=== PATIENT | male | born 2000 | race Two or more races ===

== ENCOUNTER 2024-12-27 03:53 | Emergency (ER) | payer MEDICAID, SELFPAY ==
--- NOTE | ~2024-12-27 | XR_ITS ---
CLINICAL HISTORY: Back pain 3 views lumbar spine Comparison: None Findings: No fractures or spondylolisthesis. Normal facets shotty report Disc spaces are maintained. Pedicles and transverse processes intact. Lordotic curvature is preserved. Normal bone mineralization. Normal soft tissues. Sacroiliac joints unremarkable. Impression: 1. No compression fractures or spondylolisthesis. This document has been electronically signed by: Bharath Esqueda MD on 12/27/2024 05:14:44
[2024-12-27 03:56] VITALS: BP 136/69; PULSE 66; RESP 14; TEMP 36.7; O2SAT 97; BMI 22.1
--- NOTE | 2024-12-27 05:40 | ED.BACK ---
HPI - Back Pain/Injury General Chief Complaint: Back Pain/Injury Stated Complaint: lower back injury Time Seen by Provider: 12/27/24 04:18 Source: patient Mode of arrival: ambulatory Limitations: no limitations History of Present Illness ED Provider: Dr. Gino George HPI Narrative: 24-year-old male with no significant past medical history who presents emergency department for evaluation of back pain x3 weeks. The patient states that the pain started immediately after he caught a friend jumped on him. He states that he felt immediate popping sensation in his lower back and also had pain that radiated down to both testicles. He states that that is this to kill her pain is resolved but he continues to have lower back pain. Patient points to his right lumbar paraspinal muscles when asked to localize the pain. He states that the pain is a constant pain which is worse with movement. The pain does not radiate down his legs. He has had no loss of bowel or bladder control. At the time my evaluation he states the pain is 7/10. Related Data Previous Rx's ?Medication ?Instructions ?Recorded cyclobenzaprine 10 mg tablet 10 mg PO TID PRN muscle pain or 12/27/24 spasm #20 tabs Allergies Allergy/AdvReac Type Severity Reaction Status Date / Time No Known Allergies Allergy Verified 12/27/24 03:59 Review of Systems Review of Systems: Yes all other systems are reviewed and are negative [facility] Social History Social History Smoked in Last 30 Days: No Use of substances other than those prescribed or required for medical reasons: No Advance Directives: No Advance Directives Information Provided: No Do you have a plan to hurt others: No Plan Physical Exam Vital Signs: Vital Signs: Last Vital Signs Temp 98.0 F 12/27/24 05:47 Pulse 66 12/27/24 05:47 Resp 14 12/27/24 05:47 BP 136/69 12/27/24 05:47 Pulse Ox 97 12/27/24 05:47 O2 Del Method Room Air 12/27/24 05:47 BMI result Body Mass Index 22.1 Vital signs were normal. Exam: General: Awake, alert in no distress Head: Normocephalic, atraumatic EENT: PERRL, Lids normal, sclera normal, conjunctiva normal, nose normal , ears normal, throat without erythema or exudates Neck: Supple, no adenopathy Lung: breath sounds symmetric, no wheezing, rales or rhonchi Chest: symmetric movement, nontender Heart: regular rate and rhythm, normal S1, S2 no murmurs or rubs Abdomen: soft, non-tender, nondistended, normal bowel sounds Back: no vertebral tenderness, Patient has tenderness palpation over the paraspinal muscles in the lumbosacral area on the right with spasm of these muscles. His negative straight leg raises bilaterally. Extremities: no deformities, moves all extremities symmetrically Neuro: Awake, alert, oriented, normal speech, cranial nerves intact, moves all extremities symmetrically Psych: Pleasant, cooperative Medications Administered Discontinued Medications Generic Name Dose Route Start Last Admin Trade Name Freq PRN Reason Stop Dose Admin Acetaminophen 975 mg 12/27/24 05:39 12/27/24 05:56 Acetaminophen 325 Mg Tablet PO 12/27/24 05:40 975 mg ONCE ONE Administration Ibuprofen 400 mg 12/27/24 05:39 12/27/24 05:57 Ibuprofen 400 Mg Tablet PO 12/27/24 05:40 400 mg ONCE STA Administration Medical Decision Making Medical Decision Making [facility] Narrative: 24-year-old male with no significant past medical history who presents emergency department for evaluation of back pain x3 weeks. The patient states that the pain started immediately after he caught a friend jumped on him. He states that he felt immediate popping sensation in his lower back and also had pain that radiated down to both testicles. He states that that is this to kill her pain is resolved but he continues to have lower back pain. Patient points to his right lumbar paraspinal muscles when asked to localize the pain. He states that the pain is a constant pain which is worse with movement. The pain does not radiate down his legs. He has had no loss of bowel or bladder control. At the time my evaluation he states the pain is 7/10. Vital signs were normal. Physical examination revealed no point tenderness palpation was vertebrae. Had negative straight leg raises bilaterally. He did have tenderness palpation of the paraspinal muscles in the right lumbar area with spasm of these muscles. Differential diagnosis: Includes but is not limited to Lumbar strain, lumbar sprain, disc disease, join Course: the patient's three view lumbar spine x-rays revealed no acute abnormalities. Patient's presentation and findings are consistent with lumbar sprain /strain. At this time I do not think patient has significant disc disease or infectious process is the cause of his pain. The patient was given ibuprofen and Tylenol orally here in the emergency department for his pain. He was advised to apply ice to his lower back for 15 minutes 4 to 6 times a day for the next 2-3 days. He was also advised to take Tylenol and ibuprofen for pain. Was given prescription for cyclobenzaprine 10 mg 3 times a day as needed for pain and spasm. He was given printed and verbal instructions discharged home. Admission/Observation Consideration of admission/observation: Escalation of care including admission/observation considered ( No) Independent Interpretation I performed an independent interpretation of an: Plain X-Ray Interpretation: my interpretation patient's review spine x-rays as follows: No acute fracture seen Radiology Impression Discussion of test interpretation with radiology: I have reviewed the radiologist's reading. Radiologist Impression: 3 views lumbar spine Comparison: None Findings: No fractures or spondylolisthesis. Normal facets shotty report Disc spaces are maintained. Pedicles and transverse processes intact. Lordotic curvature is preserved. Normal bone mineralization. Normal soft tissues. Sacroiliac joints unremarkable. Impression: 1. No compression fractures or spondylolisthesis. This document has been electronically signed by: Bharath Esqueda MD on 12/27/2024 05:14:44 Prescription Management I considered prescription management with: Other ( anti spasmodic: cyclobenzaprine) Discharge Plan Discharge Clinical Impression: Strain of lumbar region Patient Disposition: Home, Self-Care Instructions: Low Back Strain (ED) Additional Instructions: The x-ray of your lumbar spine did not reveal any significant abnormalities. Based on your exam, I do not think that you have a bulging disc or pinched nerve as the cause of your pain. Your pain is most likely secondary to strain/sprain of the muscles and ligaments of your back. Apply ice for 15 minute every 2-4 hours for the next 2-3 days to try to reduce the pain. Take ibuprofen 400 mg pills, 1 pills every 6 hours as needed for pain or fever. Take Tylenol (acetaminophen) 500 mg pills, 2 pills every 6 hours as needed for pain or fever. Take Flexeril (cyclobenzaprine) 10 mg pills, 1 pill every 6-8 hours as needed for pain or spasm. ?This medication will make you sleepy. ?Do not drive or work while taking this medication. Follow-up with your doctor in 2 days. Please return to the emergency department if your symptoms get worse or if you develop any symptoms that are concerning to you. 3 views lumbar spine Comparison: None Findings: No fractures or spondylolisthesis. Normal facets shotty report Disc spaces are maintained. Pedicles and transverse processes intact. Lordotic curvature is preserved. Normal bone mineralization. Normal soft tissues. Sacroiliac joints unremarkable. Impression: 1. No compression fractures or spondylolisthesis. This document has been electronically signed by: Bharath Esqueda MD on 12/27/2024 05:14:44 Prescriptions: New cyclobenzaprine 10 mg tablet 10 mg PO TID PRN (Reason: muscle pain or spasm) Qty: 20 0RF Interventions: ED Discharge Assessment Last Done: 12/27/24 05:47 Discharge Date/Time: 12/27/24 05:57 Print Language: Divehi
[2024-12-27 05:47] VITALS: BP 136/69; PULSE 66; RESP 14; TEMP 36.7; O2SAT 97
[2024-12-27] MEDS: Acetaminophen 325 MG TABLET 975 MG PO (05:56)
[2024-12-27] MEDS: Ibuprofen 400 MG TABLET PO (05:57)
== END 2024-12-27 05:57 | disposition home or self-care (01) ==
PROVIDERS: Emergency Provider Emergency Medicine Emergency Medical Services
DX: S39.012A Strain of muscle, fascia and tendon of lower back, initial encounter (principal); X58.XXXA Exposure to other specified factors, initial encounter; Y93.9 Activity, unspecified; Y92.9 Unspecified place or not applicable; Y99.8 Other external cause status
CPT/HCPCS: 72100; 99283; 99284

== ENCOUNTER → 2024-12-27 04:10 | Outpatient (BNV) | payer SELFPAY | PROVIDERS: Emergency Provider Emergency Medicine Emergency Medical Services; Visit Provider Radiology Diagnostic Radiology | DX: M54.50 Low back pain, unspecified (principal) | CPT/HCPCS: 72100 ==